=== PATIENT | female | born 1980 | race Caucasian/White ===

== ENCOUNTER 2016-12-18 17:10 | Inpatient (IN) | payer OTHER ==
[~2016-12-18] VITALS: Ht 167.6 cm; Wt 107.4 kg
[2016-12-18] MEDS ORDERED: Ketamine 100 mg/mL 5 mL Inj ONE (17:15)
[2016-12-18] MEDS ORDERED: 0.9% Sodium Chloride 1,000 ML IV ONE ×2 (17:19→20:05)
[2016-12-18] MEDS ORDERED: HYDROmorphone 0.5 mg/0.5 mL iSecure Syringe IVPUSH PRN (17:20)
[2016-12-18 17:36] LABS: BASOPHILS % (AUTO) 0.2 % (0-3); EOSINOPHILS % (AUTO) 0.3 % (0-5); MONOCYTES % (AUTO) 6.9 % (4-12); Mean Corpuscular Hemoglobin 28.4 pg (27.0-35.0); Mean Corpuscular Volume 87.2 fL (81-100); NEUTROPHILS % (AUTO) 74.7 % (40-74); Platelet Count 313 bil/L (150-400)
--- NOTE | 2016-12-18 17:37 | DRSVH ---
PROCEDURE: X-RAY CHEST ONE VIEW, PORTABLE ([id number]) INDICATIONS: trauma TECHNIQUE: One view of the chest was acquired. COMPARISON: None. FINDINGS: Surgical changes and devices: None. Lungs and pleura: No pleural effusions or pneumothorax. Lungs are clear. Mediastinum: Mediastinal contours appear normal. Heart size is normal. Bones and chest wall: There are displaced lateral left fourth, sixth, seventh, and eighth rib fractur es. IMPRESSION: Multiple lateral left rib fractures. No pneumothorax. Dictated by: Roxie Fox M.D. on 12/18/2016 at 17:34 Approved by: Roxie Fox M.D. on 12/18/2016 at 17:35
[2016-12-18] MEDS ORDERED: TdaP Vaccine 0.5 mL Inj IM ONE (17:50)
--- NOTE | 2016-12-18 17:50 | DRSVH ---
PROCEDURE: CT BRAIN WITHOUT CONTRAST ([id number]) INDICATIONS: trauma TECHNIQUE: Noncontrast 4.5 mm thick angled axial sections acquired from the foramen magnum to the vertex, with c oronal reformats. COMPARISON: None. FINDINGS: Image quality: Excellent. CSF spaces: Basal cisterns are patent. No extra-axial fluid collections. Ventricles are normal in size and shape. Brain: No midline shift. No intracranial masses or hemorrhage. [place]-white matter interface is norm al. Skull and face: Calvarium and visualized facial bones are intact, without suspicious lesions. Sinuses: Visualized sinuses and mastoids are clear. IMPRESSION: 1. No acute intracranial findings. Dictated by: Roxie Fox M.D. on 12/18/2016 at 17:46 Approved by: Roxie Fox M.D. on 12/18/2016 at 17:48
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
[2016-12-18 18:05] LABS: Lipase 14 U/L (13-60)
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
--- NOTE | 2016-12-18 18:18 | DRSVH ---
PROCEDURE: CT CERVICAL SPINE WITHOUT CONTRAST ([id number]) INDICATIONS: trauma TECHNIQUE: Noncontrast 3 mm thick sections acquired from the skull base to the T4 level. Sagittal and coronal r eformats were then constructed. For radiation dose reduction, the following was used: automated exp osure control, adjustment of mA and/or kV according to patient size. COMPARISON: None. FINDINGS: Image quality: Excellent. Bones: No fractures or dislocations of the cervical spine. A displaced left anterior second rib fract ure is noted. Soft tissues: There is extensive soft tissue fat stranding around the right clavicle both anterior an d posterior to the clavicle. Fat stranding also surrounds the right common carotid artery and right i nternal jugular artery. IMPRESSION: 1. No acute cervical spine fracture. 2. Extensive fat stranding of the anterior right cervical and anterior chest wall. Carotid or interna l jugular vascular injury cannot be excluded. If there is clinical suspicion for vascular injury, CT angiogram of the neck and chest is recommended. This finding was discussed with Dr. Gaming at 6:15 PM on 12/18/16. 3. Displaced second left rib fracture. Please see detailed description of the extensive bilateral rib fractures on the associated CT of the chest. Dictated by: Roxie Fox M.D. on 12/18/2016 at 18:09 Approved by: Roxie Fox M.D. on 12/18/2016 at 18:17
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
[2016-12-18] MEDS: Dextrose 5% 500 ML IV SCH (20:08)
--- NOTE | 2016-12-18 20:08 | DRSVH ---
PROCEDURE: CT ANGIOGRAPHY OF THE NECK WITH AND WITHOUT CONTRAST ([id number]) INDICATIONS: trauma TECHNIQUE: After the administration of intravenous contrast, 1.5 mm axial sections acquired from the aortic arch to the [place]. Coronal 3-D maximum intensity projection (MIP) and/or volume rendering ref ormats were then performed. For radiation dose reduction, the following was used: automated exposur e control. COMPARISON: None. FINDINGS: Image quality: Excellent. Carotid system: The great vessels demonstrate a conventional anatomy as they arise from the aortic a rch. The origins of the common carotid arteries appear patent. The common carotid arteries demonstr ate normal calibers and courses. The bifurcation regions appear normal bilaterally. The internal ca rotid arteries demonstrate normal caliber and course. No findings to suggest trauma to the common or internal carotid arteries. Posterior circulation: The origins of the vertebral arteries appear patent. The more superior porti ons of the vertebral arteries demonstrate normal course and caliber. They join to form a normal appe aring basilar artery. No findings to suggest vertebral artery trauma. Soft tissues: Marked fat stranding and hematoma is present throughout the anterior right soft tissues surrounding the cervical and subclavian vasculature. The the left subclavian Marked streak artifact is present within the right subclavian vein secondary to contrast administrati on. The right subclavian vein and right subclavian artery are grossly intact; however evaluation is l imited due to severe streak artifact. Atelectasis is present at the dependent lung apices. There is a trace right apical pneumothorax. Trac e subcutaneous emphysema is present along the anterior right chest wall which is incompletely charact erized on the inferior aspect of the study. Bones: Multiple minimally displaced bilateral rib fractures are redemonstrated. IMPRESSION: 1. No findings to suggest arterial or venous injury of the neck. 2. Evaluation of the right subclavian vasculature is limited due to streak artifact from contrast adm inistration. 3. Extensive subcutaneous hematoma throughout the soft tissues of the anterior right chest wall. 4. Multiple bilateral superior rib fractures. 5. Trace right apical pneumothorax. The estimate of stenosis included in the report of the imaging study was calculated using the NASCET method Dictated by: Roxie Fox M.D. on 12/18/2016 at 20:02 Approved by: Roxie Fox M.D. on 12/18/2016 at 20:07
[2016-12-18] MEDS ORDERED: Polyethylene Glycol (PEG) 17 Gm Powder PO ONE (20:10)
[2016-12-18] MEDS ORDERED: diphenhydrAMINE 25 mg Capsule PO PRN (20:10)
[2016-12-18] MEDS ORDERED: Ondansetron 2 mg/mL 2 mL Inj IVPUSH PRN (20:10)
[2016-12-18] MEDS ORDERED: Neomycin-Bacitracin-Polymyxin 15 Gm Ointment TOPICAL SCH (20:35)
[2016-12-18] MEDS ORDERED: HYDROmorphone 1 mg/mL Inj IVPUSH ONE (20:35)
[2016-12-18] MEDS: NEOMY/BACITRA/POLYMYX OINT 1 PACKET/0.9 GM PACKET TOPICAL SCH (21:15)
[2016-12-18 21:16] VITALS: BP 113/82; PULSE 115; RESP 20; O2SAT 97
[2016-12-18 21:47] LABS: APPEARANCE,URINE HAZY (CLEAR,HAZY); COLOR,URINE BLOODY (YELLOW); PH,URINE 5.5 (5.0-8.0)
[2016-12-18 21:48] LABS: OCCULT BLOOD,URINE LARGE (NEGATIVE); UROBILINOGEN,URINE NORMAL (NORMAL)
[2016-12-18] MEDS: Lactated Ringer's 1,000 ML IV SCH (23:28)
[2016-12-18] MEDS: HYDROmorphone PCA 0.2 mg/mL 30 mL Inj IV PRN (23:29)
[2016-12-19] VITALS (9 sets, daily range): BP systolic 108–138; BP diastolic 76–85; PULSE 91–107; RESP 16–22; O2SAT 97–100
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
[2016-12-19] MEDS: Ondansetron 2 mg/mL 2 mL Inj IVPUSH PRN ×2 (01:29→06:41)
[2016-12-19 02:48] LABS: BASOPHILS % (AUTO) 0.2 % (0-3); EOSINOPHILS % (AUTO) 0 % (0-5); MONOCYTES % (AUTO) 12.6 % (4-12); Mean Corpuscular Hemoglobin 28.5 pg (27.0-35.0); Mean Corpuscular Volume 87.1 fL (81-100); NEUTROPHILS % (AUTO) 79.4 % (40-74); Platelet Count 241 bil/L (150-400)
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
--- NOTE | 2016-12-19 06:49 | NUR ---
pain/mobility: pt. states pain 9-10 w/ activity, pt. was able to transfer to bedside commode w/ assist, pt. had emesis w/ getting up, slightly dizzy, zofran given.
[2016-12-19] MEDS: NEOMY/BACITRA/POLYMYX OINT 1 PACKET/0.9 GM PACKET TOPICAL SCH ×2 (08:30→23:02)
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
[2016-12-19] MEDS: Heparin 5,000 Unit/mL Inj SUBQ SCH ×2 (10:28→20:47)
[2016-12-19] MEDS: Lactated Ringer's 1,000 ML IV SCH ×2 (12:32→23:55)
[2016-12-19] MEDS: Pantoprazole 20 mg ER24 Tablet PO SCH ×2 (12:32→20:47)
--- NOTE | 2016-12-19 13:05 | DRSVH ---
PROCEDURE: X-RAY CHEST ONE VIEW, PORTABLE ([id number]) INDICATIONS: RIB FRACTURES TECHNIQUE: One view of the chest was acquired. COMPARISON: [facility], CT, CT CHEST ABD PELVIS W CON, 12/18/2016, 17:26. [facility], CR, XR CHEST 1VW (PORTABLE), 12/18/2016, 17:10. FINDINGS: Surgical changes and devices: None. Lungs and pleura: No pleural effusions or pneumothorax. Lungs are clear. Mediastinum: Mediastinal contours appear normal. Heart size is normal. Bones and chest wall: No suspicious bony lesions. Overlying soft tissues appear unremarkable. Left fourth, sixth, seventh and eighth rib fractures redemonstrated. IMPRESSION: Multiple left rib fractures redemonstrated and no pneumothorax is present. Dictated by: Kush Nesbitt Fiona Interpreted: Roxie Fox MD on 12/19/2016 at 13:03 Transcribed by: HARSHA on 12/19/2016 at 13:05 Approved by: Roxie Fox M.D. on 12/19/2016 at 15:30
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
[2016-12-19] MEDS: HYDROmorphone PCA 0.2 mg/mL 30 mL Inj IV PRN (13:50)
--- NOTE | 2016-12-19 16:25 | NUR ---
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 c/o feeling dizzy occasionally with movement. pt using IS up to 750-1000 this shift, enc to use 10x/hr.
--- NOTE | 2016-12-19 18:29 | NUR ---
ambulation amb to doorway and back dizzy upon sitting up.
[2016-12-19] MEDS: Dextrose 5% 500 ML IV SCH (20:08)
[2016-12-20] VITALS (7 sets, daily range): BP systolic 102–113; BP diastolic 61–76; PULSE 77–95; RESP 16–20; O2SAT 96–100
[2016-12-20] MEDS: HYDROmorphone PCA 0.2 mg/mL 30 mL Inj IV PRN (04:47)
--- NOTE | 2016-12-20 05:47 | NUR ---
Shift Note Assumed pt care at 1900, pt trauma pain managed with Dilaudid FOLDER MACHINE and scheduled Motrin, effective per pt report, no breakthrough pain so far at this time, ice packs unto R arm and L lower rib, pt on 02 at 2l/min via NC, on CPOX, sats stable on high 90's, I.S at bedside, reinforced teaching, pt compliant, pt able to ambulate to bsc, tolerated well, scd's on, notable bruising on upper extremities, dressing changed on L arm abrasion, qhrly checks done throughout night.
[2016-12-20] MEDS: NEOMY/BACITRA/POLYMYX OINT 1 PACKET/0.9 GM PACKET TOPICAL SCH ×2 (08:30→20:57)
[2016-12-20] MEDS: Pantoprazole 20 mg ER24 Tablet PO SCH ×2 (09:05→20:11)
[2016-12-20] MEDS: Heparin 5,000 Unit/mL Inj SUBQ SCH ×2 (09:06→20:11)
[2016-12-20] MEDS: Ondansetron 2 mg/mL 2 mL Inj IVPUSH PRN ×2 (11:00→14:24)
[2016-12-20] MEDS: Lactated Ringer's 1,000 ML IV SCH (12:10)
[2016-12-20] MEDS: Dextrose 5% 500 ML IV SCH (12:28)
[2016-12-20] MEDS ORDERED: HYDROmorphone 0.5 mg/0.5 mL iSecure Syringe IVPUSH PRN (13:05)
--- NOTE | 2016-12-20 13:19 | DRSVH ---
PROCEDURE: X-RAY CHEST, TWO VIEWS ([id number]) INDICATIONS: follow pneumo TECHNIQUE: 2 views of the chest were acquired. COMPARISON: [facility], CT, CT CHEST ABD PELVIS W CON, 12/18/2016, 17:26. [facility], CR, XR CHEST 1VW (PORTABLE), 12/19/2016, 9:18. [facility], CT, CT CHEST W CON, 12/18/2016, 19:14. FINDINGS: Surgical changes and devices: None. Lungs and pleura: Face bilateral pleural effusions. No pneumothorax. Left basilar opacity may be infi ltrate or atelectasis. Mediastinum: Mediastinal contours are normal. Heart size is normal. Bones and chest wall: No suspicious bony abnormalities. Soft tissues appear unremarkable. IMPRESSION: Left basilar infiltrate atelectasis. Dictated by: Kush Nesbitt RRA Interpreted: Roxann Maldonado MD on 12/20/2016 at 13:18 Transcribed by: INGRID on 12/20/2016 at 13:19 Approved by: Roxann Maldonado M.D. on 12/21/2016 at 19:54
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
--- NOTE | 2016-12-20 18:04 | NUR ---
Mobility/pain/.nausea Pt amb x 1 to outside room and back. Up to chair x2, once for 2 hrs, once for 40 min Pain 7-10 with PO pain pills, able to take rest periods. 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 Addendum: 12/20/16 at 1807 by OMLAN GOLDBERG RN pt refused to look at body/injuries.
[2016-12-21 00:40] VITALS: BP 118/80; PULSE 89; RESP 17; O2SAT 95
[2016-12-21 04:59] VITALS: BP 131/85; PULSE 93; RESP 17; O2SAT 96
--- NOTE | 2016-12-21 05:24 | NUR ---
Shift Note Assumed pt care at 1900, pt pain managed with PO Oxy and scheduled Motrin, no breakthrough pain throughout night, ice packs applied on R arm and L rib areas.
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
[2016-12-21] MEDS: Pantoprazole 20 mg ER24 Tablet PO SCH ×2 (08:18→20:22)
[2016-12-21] MEDS: Heparin 5,000 Unit/mL Inj SUBQ SCH ×2 (08:19→20:29)
[2016-12-21 08:25] VITALS: BP 118/81; PULSE 92; RESP 16; O2SAT 98
[2016-12-21] MEDS: NEOMY/BACITRA/POLYMYX OINT 1 PACKET/0.9 GM PACKET TOPICAL SCH ×2 (11:35→20:29)
--- NOTE | 2016-12-21 15:55 | PROG NOTE ---
[address] [address] PROGRESS NOTE PATIENT: CIERA BRADFORD : 1980 MR#: [id number] ADMIT: 12/18/2016 JOB ID: [id number] DATE: 12/21/2016 SUBJECTIVE: The patient is seen in followup. She has nausea associated with getting oxycodone, and we will change that. She reports that she is getting out of bed but obviously is still limited by significant pain with her multiple bilateral rib fractures and sternal fracture. REVIEW OF SYSTEMS: Otherwise negative. PHYSICAL EXAMINATION: Alert, in no distress. Temperature 36.8, brachial blood pressure 118/81, pulse 92, respiratory rate 16, O2 sat room air 98%. She is resting comfortably. She is in no distress. IMPRESSION: I would say she is having a typical recovery considering the number of her rib fractures, as well as a sternal fracture. PLAN: She will be switched from oxycodone to hydrocodone with acetaminophen. She is encouraged to continue to ambulate and to use her incentive spirometer.
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
[2016-12-21] MEDS: oxyCODONE-Acetamin 5-325 mg Tablet PO PRN ×2 (16:30→20:22)
[2016-12-21 16:31] VITALS: BP 118/80; PULSE 88; RESP 16; O2SAT 98
--- NOTE | 2016-12-21 18:40 | NUR ---
Pain/Nausea Pt complaining of chest pain related to sternal fracture. Reports that percocet q4 is effective in managing her pain at this time in addition to scheduled ibuprofen. She also reports nausea and a decreased appetite. Given zofran and phenergan PRN with good results.
[2016-12-21] MEDS: Dextrose 5% 500 ML IV SCH (20:08)
[2016-12-21 21:15] VITALS: BP 120/79; PULSE 96; RESP 17; O2SAT 96
[2016-12-22] MEDS: oxyCODONE-Acetamin 5-325 mg Tablet PO PRN ×6 (02:06→23:38)
[2016-12-22 04:47] VITALS: BP 137/81; PULSE 87; RESP 17; O2SAT 95
--- NOTE | 2016-12-22 04:48 | NUR ---
Pain Pt had breakthrough pain due to ambulating to BSC. Gave 1 tab Percocet 30 minutes early due to 8/10 pain.
[2016-12-22] MEDS: Pantoprazole 20 mg ER24 Tablet PO SCH ×2 (07:59→20:28)
[2016-12-22] MEDS: Heparin 5,000 Unit/mL Inj SUBQ SCH ×2 (08:00→20:29)
[2016-12-22] MEDS: NEOMY/BACITRA/POLYMYX OINT 1 PACKET/0.9 GM PACKET TOPICAL SCH ×2 (08:00→20:29)
--- NOTE | 2016-12-22 11:30 | NUR ---
Status Pt stable and seen by Dr. Navarro this am. Plan is for d/c in am. MD visualized both chest and left wrist wounds. Pt getting pain relief with prn meds.
--- NOTE | 2016-12-22 12:56 | PROG NOTE ---
[address] [address] PROGRESS NOTE PATIENT: CIERA BRADFORD : 1980 MR#: [id number] ADMIT: 12/18/2016 JOB ID: [id number] DATE: 12/22/2016 SUBJECTIVE: The patient remains stable, has not had a bowel movement yet. She is using all oral pain medications but is still having some difficulty being stable on her feet. She will not have help at home until tomorrow and we will, therefore, keep her in the hospital for one more day for increased mobilization and safety.
[2016-12-22 12:57] VITALS: BP 131/83; PULSE 85; RESP 14; O2SAT 96
[2016-12-22] MEDS: Dextrose 5% 500 ML IV SCH (20:08)
[2016-12-22 20:21] VITALS: BP 124/87; PULSE 85; RESP 18; O2SAT 96
--- NOTE | 2016-12-23 01:50 | NUR ---
Mobility PT has been slowly improving her mobility status. She has worked with PT. Continues to improve as pain managed. Addendum: 12/23/16 at 0152 by MAREN SEVERINO RN Amended: Links added.
--- NOTE | 2016-12-23 01:51 | NUR ---
Respiratory PT encouraged to continue use of IS. She achieved about 750. Her breathing is shallow and limited by pain. Oxygenation is good ORA. Continue to encourage and monitor. Addendum: 12/23/16 at 0152 by MAREN SEVERINO RN Amended: Links added.
[2016-12-23] MEDS: oxyCODONE-Acetamin 5-325 mg Tablet PO PRN ×2 (03:31→07:42)
[2016-12-23 04:18] VITALS: BP 124/84; RESP 17; O2SAT 96
--- NOTE | 2016-12-23 05:18 | NUR ---
EKG did not have any new changes since prior. MD would like pt transferred to higher level of care. PT did get relief with nitro, but b/p dropped into the 70's. 500cc NS bolus given. CP down to a 2 at this time. Report called to MORELIA Hancock RN. PT will be transferred by this RN. Addendum: 12/23/16 at 0628 by MAREN SEVERINO RN this is charted on the wrong pt. Please disregard this note. Not correct.
--- NOTE | 2016-12-23 06:36 | NUR ---
PT had a good night overall. She slept well. Pain is manageable, but does require 1 percocet every 4 hours routinely. Obvious bruising noted as prior docs show. Abrasion to R shoulder intact. L wrist dressing intact. PT ambulates to BR with 1 person assist. Likely to d/c today as she has help available at home. Will CTM progress.
--- NOTE | 2016-12-23 06:42 | NUR ---
Orientation I agree with Shireen Whiteside RN assessments and charting. RN orientated to [facility] inpatient workflow and workspace.
[2016-12-23] MEDS: Pantoprazole 20 mg ER24 Tablet PO SCH (07:41)
[2016-12-23] MEDS: Heparin 5,000 Unit/mL Inj SUBQ SCH (07:41)
[2016-12-23] MEDS: NEOMY/BACITRA/POLYMYX OINT 1 PACKET/0.9 GM PACKET TOPICAL SCH (07:42)
[2016-12-23 07:45] VITALS: BP 130/83; PULSE 89; RESP 12; O2SAT 96
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
[2016-12-23] MEDS ORDERED: NEOM1PAC2 TOPICAL (08:14)
[2016-12-23] MEDS ORDERED: IBUP400T22 PO (08:14)
[2016-12-23] MEDS ORDERED: OXYC5TAB72 PO (08:14)
--- NOTE | 2016-12-23 08:30 | NUR ---
Activity Pt up to BSC with stand by assist. Able to ambulate to and from seek without assistance and tolerated well. Pain controlled with prn meds.
--- NOTE | 2016-12-23 11:13 | NUR ---
Discharge Pt dc'd in wheelchair with friend, RN wheeled out at 1105. Reviewed all discharge instructions with pt who verbalized understanding. Changed, cleaned and redressed left wrist wound. Discussed signs/symptoms of infection and need to monitor. IV dc'd w/o complications. Reviewed need to continue IS at home, which pt took with her on dc. Reviewed reasons to seek emergent care: SOB/difficulty breathing, new chest pain. Pt verbalized understanding. All belongings with pt.
--- NOTE | 2016-12-23 14:10 | NUR ---
Social Work Note: Discharge Data& Assessment: Per pt is medically improved and ready to discharge home with home health PT and RN via POV. EILEEN contacted Storm from [facility] to notify him of pt discharge. Laci Inman informed EILEEN that he was unsure if the authorization for had been obtained already. Per previous documentation, confirmation of acceptance for services and acceptance of insurance had already been obtained through [facility]. Signed F2F faxed to [facility]. Laci Inman plans to ensure that the referral is accepted by a agency if their own company is unable to provide the services to pt for insurance reasons, and contact EILEEN if there are any issues. No other discharge needs identified at this time. Pt been picked up prior to final check in. Plan: Per pt is medically improved and ready to discharge home with [facility] and RN via POV. [facility] plans to follow up with pt regarding home health services. No other discharge needs identified at this time. CASSIA Gutierrez
--- NOTE | 2016-12-23 15:56 | PROG NOTE ---
[address] [address] PROGRESS NOTE PATIENT: CIERA BRADFORD : 1980 MR#: [id number] ADMIT: 12/18/2016 JOB ID: [id number] DATE: 12/23/2016 The patient is ready for discharge today. We reviewed all of her wounds, all of her injuries. I reviewed the fact that I want her to go onto oxycodone with [id number] Tylenol to avoid risks of Tylenol toxicity. All of her wounds are healing well with the topical antibiotic ointment. We discussed medium-term and half-way effects of the rib fractures, importance of continued incentive spirometry and activity. Discussed what she should come back to see us for and that if she is doing well she can follow up with her PCP. Thirty minutes was used in coordinating discharge care and [id number] discussion with the patient today.
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
== END 2016-12-23 11:02 | disposition home health service (06) | DRG 184 ==
LOC: SED 17:10 → OSC 20:18 → EDBD 20:18 → MOC 12-19 00:45
PROVIDERS: ADMIT Surgery; ATTEND Surgery
DX: S22.43XA Multiple fractures of ribs, bilateral, initial encounter for closed fracture (principal); S27.0XXA Traumatic pneumothorax, initial encounter; S22.20XA Unspecified fracture of sternum, initial encounter for closed fracture; V57.1XXA Passenger in pick-up truck or van injured in collision with fixed or stationary object in nontraffic accident, initial encounter; S20.212A Contusion of left front wall of thorax, initial encounter; S20.211A Contusion of right front wall of thorax, initial encounter; S50.812A Abrasion of left forearm, initial encounter